=== PATIENT | male | born 1975 | race Caucasian/White ===

== ENCOUNTER 2025-08-21 12:39 | Outpatient (REF) | payer OTHER, SELFPAY | END 2025-08-21 23:59 | disposition home or self-care (01) | LOC: WOUND 12:39 | PROVIDERS: ATTENDING PHYSICIAN Registered Nurse; FAMILY PHYSICIAN Family Medicine | DX: M79.89 Other specified soft tissue disorders (principal); I83.028 Varicose veins of left lower extremity with ulcer other part of lower leg; I70.248 Atherosclerosis of native arteries of left leg with ulceration of other part of lower leg; I82.513 Chronic embolism and thrombosis of femoral vein, bilateral; E11.69 Type 2 diabetes mellitus with other specified complication; Z79.01 Long term (current) use of anticoagulants | CPT/HCPCS: 99204 ==

== ENCOUNTER 2025-09-05 10:41 | Outpatient (REF) | payer OTHER, SELFPAY | END 2025-09-05 23:59 | disposition home or self-care (01) | LOC: WOUND 10:41 | PROVIDERS: ATTENDING PHYSICIAN Registered Nurse; FAMILY PHYSICIAN Family Medicine | DX: M79.89 Other specified soft tissue disorders (principal); I83.028 Varicose veins of left lower extremity with ulcer other part of lower leg; I70.248 Atherosclerosis of native arteries of left leg with ulceration of other part of lower leg; I82.513 Chronic embolism and thrombosis of femoral vein, bilateral; E11.69 Type 2 diabetes mellitus with other specified complication; Z79.01 Long term (current) use of anticoagulants | CPT/HCPCS: 99214 ==

== ENCOUNTER 2025-09-10 10:48 | Outpatient (REF) | payer OTHER, SELFPAY | END 2025-09-10 23:59 | disposition home or self-care (01) | LOC: WOUND 10:48 | PROVIDERS: ATTENDING PHYSICIAN Registered Nurse; FAMILY PHYSICIAN Family Medicine | DX: M79.89 Other specified soft tissue disorders (principal); I83.028 Varicose veins of left lower extremity with ulcer other part of lower leg; I70.248 Atherosclerosis of native arteries of left leg with ulceration of other part of lower leg; I82.513 Chronic embolism and thrombosis of femoral vein, bilateral; E11.69 Type 2 diabetes mellitus with other specified complication; Z79.01 Long term (current) use of anticoagulants | CPT/HCPCS: 99214 ==